=== PATIENT | male | born 1950 | race Caucasian/White ===

== ENCOUNTER 2020-07-26 21:02 | Emergency (ER) | payer SELFPAY ==
[2020-07-26 21:06] VITALS: BP 120/81; PULSE 62; RESP 16; TEMP 37; O2SAT 94; BMI 21.9
[2020-07-26 21:13] VITALS: PULSE 71; O2SAT 100
--- NOTE | 2020-07-26 21:13 | DI.CT.S_ITS ---
PROCEDURE: CT HEAD/BRAIN WO CON INDICATIONS: fall head lac etoh TECHNIQUE: Noncontrast 4.5 mm thick angled axial sections acquired from the foramen magnum to the vertex, with coronal and sagittal reformats. For radiation dose reduction, the following was used: automated exposure control, adjustment of mA and/or kV according to patient size. COMPARISON: None. FINDINGS: Image quality: Excellent. CSF spaces: Basal cisterns are patent. No extra-axial fluid collections. The ventricles are symmetric in size and shape. Brain: No intracranial bleeds or masses. There is cerebral volume loss for age, with resultant ventricular and sulcal prominence. There are periventricular and deep white matter chronic small vessel ischemic changes. There is intracranial internal carotid artery atherosclerosis. Skull and face: Calvarium and visualized facial bones appear intact, without suspicious lesions. Sinuses: Visualized sinuses and mastoids are clear. IMPRESSION: No acute process. Concordant with preliminary interpretation. Dictated by: Lelia Castellano M.D. on 07/27/2020 at 8:05 Approved by: Lelia Castellano M.D. on 07/27/2020 at 8:06
--- NOTE | 2020-07-26 21:13 | DI.CT.S_ITS ---
PROCEDURE: CT CERVICAL SPINE WO CON INDICATIONS: fall TECHNIQUE: Noncontrast 3 mm thick sections acquired from the skull base to the T4 level. Sagittal and coronal reformats were then constructed. For radiation dose reduction, the following was used: automated exposure control, adjustment of mA and/or kV according to patient size. COMPARISON: None. FINDINGS: Image quality: Partially degraded by motion artifact. Bones: No fractures or dislocations. Visualized superior ribs are intact. Multilevel degenerative disc and facet disease. Soft tissues: Prevertebral soft tissues are normal in thickness. No paravertebral hematomas. No apical pneumothoraces. IMPRESSION: No fracture. Concordant with preliminary interpretation. Dictated by: Lelia Castellano M.D. on 07/27/2020 at 8:06 Approved by: Lelia Castellano M.D. on 07/27/2020 at 8:08
--- NOTE | 2020-07-26 21:14 | ED.FALL ---
HPI - Fall General Chief Complaint: Fall Stated Complaint: GLF ETOH Time Seen by Provider: 07/26/20 21:11 Source: patient and EMS Mode of arrival: EMS Limitations: no limitations History of Present Illness HPI Narrative: Patient is a 70-year-old male who presents after ground level fall with laceration to head. He drinks 1 bottle of wine every night and has for a number of years. Tonight he says he got caught up in an area rug and fell and hit his head on a doorjamb. No loss of consciousness he is not on any blood thinners. No neck pain numbness tingling or weakness. Related Data Home Medications Medication Instructions Recorded Confirmed IBUPROFEN (#IBUPAIN-200) 200 mg PO PRN #0 08/04/11 Allergies Allergy/AdvReac Type Severity Reaction Status Date / Time No Known Drug Allergies Allergy Verified 07/26/20 22:52 Review of Systems Review of Systems ROS Unobtainable: All systems reviewed & are unremarkable except as noted in HPI and below Constitutional Constitutional: Denies chills, Denies fever(s), Denies lethargy and Denies weakness Eyes Eyes: Denies change in vision, Denies eye discharge, Denies irritation and Denies loss of vision Cardiovascular Cardiovascular: Denies chest pain, Denies irregular heart rhythm, Denies lightheadedness, Denies palpitations, Denies dyspnea, Denies dyspnea on exertion and Denies orthopnea Respiratory Respiratory: Denies cough, Denies dyspnea, Denies dyspnea on exertion and Denies wheezing Gastrointestinal Gastrointestinal: Denies abdominal pain, Denies change in bowel habits, Denies diarrhea, Denies nausea and Denies vomiting Musculoskeletal Musculoskeletal: Denies myalgias, Denies deformity and Denies joint swelling Integumentary/Breasts Skin/Breast: Reports as per HPI Neurologic Neurologic: Denies loss of vision and Denies weakness Endocrine Endocrine: Denies palpitations Allergic/Immunologic Allergic/Immunologic: Denies wheezing Patient History Medical History Alcoholism alcohol intake frequency: 3 or more drinks per day Alcohol type: wine Substance Use Type: does not use Exam Initial Vital Signs Initial Vital Signs: Vital Signs Temperature 98.6 F 07/26/20 21:06 Pulse Rate 62 07/26/20 21:06 Respiratory Rate 16 07/26/20 21:06 Blood Pressure 120/81 07/26/20 21:06 Pulse Oximetry 94 07/26/20 21:06 GENERAL: Alert appearing 70-year-old male and in no acute distress. HEENT: Head 5 cm laceration at hairline good skin approximation no crepitations or depression,EOMI, pupils reactive, face symmetric, moist mucous membranes NECK: Non tender full range of motion, no step-offs C-collar placed in the emergency department CARDIOVASCULAR: Regular rate and rhythm without murmurs, rubs or gallops. RESPIRATORY: Breath sounds equal bilaterally, no wheezes rales or rhonchi. ABDOMEN: Soft, nontender. Normoactive bowel sounds all 4 quadrants. No guarding or rebound. EXTREMITIES: Normal range of motion, no clubbing or edema. Neurovascularly intact NEUROLOGICAL: Alert and oriented x3.Normal gait and speech. Cranial nerves II through XII grossly intact. 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 SKIN: Large scalp laceration 5 cm as described good skin approximation Procedures Laceration Repair Laceration 1: Site: scalp Size (cm): 5 Description: linear Depth: simple, single layer Local Anesthetic: lidocaine 1% and with epi Amount of anesthesia used (mL): 6 Skin layer closed with: kavita Number of sutures: 8 Scores Nexus Score for C-Spine Focal Neurologic deficit present: No Midline spinal tenderness present: No Altered level of conciousness present: No Intoxication present: Yes Distracting Injury Present: No Nexus Criteria for C-spine: 1 Course Orders Ordered: ED Orders 07/26/20 21:13 CT cervical spine wo con Stat CT head/brain wo con Stat 07/26/20 21:16 Complete Blood Count AUTO DIFF Stat Ethanol (ETOH) Stat Partial Thromboplastin Time Stat Prothrombin Time INR Stat 07/26/20 21:30 Comprehensive Metabolic Panel Stat Troponin & CK Cardiac Panel Stat Discontinued Medications Lidocaine/Epinephrine (Lidocaine 1% W/Epi) 1 ml SUBCUT NOW ONE Stop: 07/26/20 22:40 Last Admin: 07/26/20 22:55 Dose: 1 ml Documented by: YSABEL Vital Signs Vital signs: Vital Signs - 8 hr 07/26/20 22:00 07/26/20 22:01 Pulse Rate 92 H 77 Blood Pressure 123/75 Pulse Oximetry 99 99 MDM - Fall Lab Data Attestation: I reviewed the patient's lab results. Result diagrams: 07/26/20 21:16 07/26/20 21:30 Labs: Lab Results 07/26/20 07/26/20 07/26/20 Range/Units 21:16 21:16 21:16 WBC 6.2 (4.5-11.0) X10^3/uL RBC 4.58 (4.5-5.9) X10^6/uL Hgb 14.8 (13.5-17.5) g/dL Hct 44.7 (41-53) % MCV 97.8 (80-100) fL MCH 32.4 (26-34) PG MCHC 33.2 (30-36) % RDW 13.2 (11.6-14.8) % Plt Count 180 (150-400) X10^3/uL Neut % (Auto) 52.6 (50-75) % Lymph % (Auto) 30.0 (25-40) % Barton % (Auto) 15.1 H (3-14) % Eos % (Auto) 1.4 L (2-4) % Baso % (Auto) 0.9 (0-2) % Neut # (Auto) 3300 (2588-7188) /uL Lymph # (Auto) 1900 (7787-4423) /uL Barton # (Auto) 900 (0-900) /uL Eos # (Auto) 100 (0-450) /uL Baso # (Auto) 100 (0-100) /uL PT 13.2 H (10.1-12.7) SECONDS INR 1.2 (0.9-1.3) APTT 29 (26.4-36.2) SECONDS Sodium Cancelled Potassium Cancelled Chloride Cancelled Carbon Dioxide Cancelled BUN Cancelled Creatinine Cancelled Estimated GFR Cancelled BUN/Creatinine Ratio Cancelled Glucose Cancelled Calcium Cancelled Total Bilirubin Cancelled AST Cancelled ALT Cancelled Alkaline Phosphatase Cancelled Total Creatine Kinase (55-170) U/L CK-MB (CK-2) (<2.37) ng/mL CK-MB (CK-2) Rel Index (1.5-5.0) % Troponin I (0.01-0.034) ng/mL Total Protein Cancelled Albumin Cancelled Globulin Cancelled Albumin/Globulin Ratio Cancelled Ethyl Alcohol 165 H ( - 10) mg/dL 02/27/21 Range/Units 21:30 WBC (4.5-11.0) X10^3/uL RBC (4.5-5.9) X10^6/uL Hgb (13.5-17.5) g/dL Hct (41-53) % MCV (80-100) fL MCH (26-34) PG MCHC (30-36) % RDW (11.6-14.8) % Plt Count (150-400) X10^3/uL Neut % (Auto) (50-75) % Lymph % (Auto) (25-40) % Barton % (Auto) (3-14) % Eos % (Auto) (2-4) % Baso % (Auto) (0-2) % Neut # (Auto) (7954-9074) /uL Lymph # (Auto) (9120-0135) /uL Barton # (Auto) (0-900) /uL Eos # (Auto) (0-450) /uL Baso # (Auto) (0-100) /uL PT (10.1-12.7) SECONDS INR (0.9-1.3) APTT (26.4-36.2) SECONDS Sodium 137 Potassium 4.2 Chloride 104 Carbon Dioxide 27 BUN 31 H Creatinine 1.06 Estimated GFR > 60.0 BUN/Creatinine Ratio 29.2 H Glucose 120 H Calcium 8.4 Total Bilirubin 0.6 AST 48 ALT 30 Alkaline Phosphatase 46 Total Creatine Kinase 198 H (55-170) U/L CK-MB (CK-2) 5.79 H (<2.37) ng/mL CK-MB (CK-2) Rel Index 2.9 (1.5-5.0) % Troponin I < 0.012 (0.01-0.034) ng/mL Total Protein 6.4 Albumin 3.6 Globulin 2.8 Albumin/Globulin Ratio 1.3 Ethyl Alcohol ( - 10) mg/dL Imaging Data CT scan - head: Radiologist's Impression: No significant abnormalities CT - cervical spine: Radiologist's Impression: No acute process MDM Narrative Medical decision making narrative: 9:45 p.m.. Patient is adamantly refusing CT scan stating that only doing it to increases medical bill. He is an alcoholic with a laceration on his head. He has an EtOH of 165. I am not able to clear his Cervical spine due to intoxication. He is also at risk for intracranial hemorrhage based on ETOH and l laceration. Family is at bedside trying to convince him to get the CT scan. He is adamant about not having it. Family and nursing finally convince patient to have CT. His CTs were negative laceration was easily repaired. Discharge Plan Departure Patient Disposition: Home Clinical Impression: Laceration of head Qualifiers: Encounter type: initial encounter Location of open wound of head: scalp Foreign body presence: without foreign body Qualified Code(s): S01.01XA - Laceration without foreign body of scalp, initial encounter Alcohol intoxication Qualifiers: Complication of substance-induced condition: uncomplicated Qualified Code(s): F10.920 - Alcohol use, unspecified with intoxication, uncomplicated Instructions: DI for Laceration Repair -- [place] Activity Restrictions/Additional Instructions: *You have been diagnosed with head laceration and alcohol intoxication *What to do: Kavita need to 3 be removed in about 7 days. Keep area clean and dry with soap and water. Okay to bathe do not cut hair. No soaking in water. You may apply antibiotic ointment 1 to 2 times a day to help healing process *Continue to take medications as directed Tylenol 650 mg every 4-6 hours if needed for [id number] pain *Follow up with your primary care provider in 2-3 days *Return to ER if you should have redness pus swelling, persistent vomiting or any new, worsening or concerning symptoms Prescriptions: No Action IBUPROFEN (#IBUPAIN-200) 200 mg PO PRN Qty: 0 RF: 0 Referrals: Xander Estes MD [Primary Care Provider] -
[2020-07-26 21:23] LABS: Add Manual Diff / Slide Review NO; Basophils Absolute Auto 100 /uL (0-100); Basophils Percent Auto 0.9 % (0-2); Eosinophils Absolute Auto 100 /uL (0-450); Eosinophils Percent Auto 1.4 % (2-4); Hematocrit 44.7 % (41-53); Hemoglobin 14.8 g/dL (13.5-17.5); Lymphocytes Absolute Auto 1900 /uL (1100-4500); Mean Corpuscular HGB Conc 33.2 % (30-36); Mean Corpuscular Hemoglobin 32.4 PG (26-34); Mean Corpuscular Volume 97.8 fL (80-100); Monocytes Absolute Auto 900 /uL (0-900); Monocytes Percent Auto 15.1 % (3-14); Neutrophils Absolute Auto 3300 /uL (1500-7000); Neutrophils Percent Auto 52.6 % (50-75); Platelet Count 180 X10^3/uL (150-400); Red Blood Cell Count 4.58 X10^6/uL (4.5-5.9); Red Cell Distribution Width 13.2 % (11.6-14.8); White Blood Cell Count 6.2 X10^3/uL (4.5-11.0)
[2020-07-26 21:25] LABS: INR 1.2 (0.9-1.3); Prothrombin Time 13.2 SECONDS (10.1-12.7)
--- NOTE | 2020-07-26 21:25 | PC.NURSE ---
Patient refuses cardiac specialist at this time.
[2020-07-26 21:27] LABS: PTT Partial Thromboplastin Tim 29 SECONDS (26.4-36.2)
[2020-07-26 21:30] VITALS: BP 125/75; PULSE 63; O2SAT 99
[2020-07-26 21:30] LABS: Ethanol (ETOH) 165 mg/dL
[2020-07-26 21:51] LABS: Alanine Aminotransferase 30 IU/L (<50); Albumin 3.6 g/dL (3.5-5.0); Albumin Globulin Ratio 1.3 (1.0-2.8); Alkaline Phosphatase 46 U/L (38-126); Aspartate Aminotransferase 48 IU/L (17-59); BUN Creatinine Ratio 29.2 (6-22); Bilirubin Total 0.6 mg/dL (0.2-1.3); Blood Urea Nitrogen 31 mg/dL (9-20); Calcium 8.4 mg/dL (8.4-10.2); Carbon Dioxide 27 mmol/L (22-32); Chloride 104 mmol/L (98-107); Creatine Kinase 198 U/L (55-170); Estimated Glomerular Filt Rate > 60.0 mL/min (>60); Globulin 2.8 g/dL (1.7-4.1); Glucose 120 mg/dL (80-110); HEMOLYSIS 25 (0-50); Potassium 4.2 mmol/L (3.4-5.1); Sodium 137 mmol/L (137-145); Total Protein 6.4 g/dL (6.3-8.2)
[2020-07-26 22:00] VITALS: PULSE 92; O2SAT 99
[2020-07-26 22:01] VITALS: BP 123/75; PULSE 77; O2SAT 99
[2020-07-26 22:02] LABS: Troponin I < 0.012 ng/mL (0.01-0.034)
[2020-07-26 22:06] LABS: CKMB % Relative Index 2.9 % (1.5-5.0); Creatine Kinase MB 5.79 ng/mL (<2.37)
--- NOTE | 2020-07-26 22:16 | PC.NURSE ---
[address] to get [address] scan, is verbally aggressive with staff stating he does not want to pay for it. It was explained to the patient by Dr. Lucio that due to his current level of intoxication he does not have decision-making capacity. Patient continues to escalate angrily. Daughter and at bedside attempting to calm and speak with the patient.
--- NOTE | 2020-07-26 22:18 | PC.NURSE ---
4439 At this time I spoke with the patient and convinced him to calmly receive CT scan.
[2020-07-26] MEDS: LIDOCAINE 1% W/EPI 1 ML SUBCUT (22:55)
--- NOTE | 2020-07-26 23:03 | PC.NURSE ---
PLaced by Dr. Lucio
--- NOTE | 2020-07-26 23:15 | PC.NURSE ---
C-Collar Dc'd with discharge.
== END 2020-07-26 23:14 | disposition home or self-care (01) ==
PROVIDERS: Emergency Provider Emergency Medicine; Family Provider Internal Medicine; PCP Internal Medicine
DX: S01.01XA Laceration without foreign body of scalp, initial encounter (principal); F10.129 Alcohol abuse with intoxication, unspecified; Y90.6 Blood alcohol level of 120-199 mg/100 ml; W19.XXXA Unspecified fall, initial encounter
CPT/HCPCS: 12002; 70450; 72125; 80053; 80320; 82550; 82553; 84484; 85025; 85610; 85730; 99284

== ENCOUNTER 2023-10-27 22:06 | Emergency (ER) | payer SELFPAY ==
[2023-10-27 22:12] VITALS: BP 102/65; PULSE 86; RESP 12; TEMP 35.9; O2SAT 98; BMI 22.8
--- NOTE | 2023-10-27 22:15 | ED.FALL ---
HPI - Fall General Chief Complaint: Syncope Stated Complaint: Fall, Lac, ETOH, Altered Time Seen by Provider: 10/27/23 22:15 Source: EMS Mode of arrival: EMS History of Present Illness HPI Narrative: 73-year-old male with history of alcohol use disorder, AFib not on anticoagulation presents by EMS from home for ground level fall with frontal head injury. Patient states that he had done more yd work than usual and drank a bottle of wine at home, and he thinks he may have over did it. While walking upstairs he stumbled and hit his head against the stairs. Patient states his tetanus shot has been updated within the last 5 years. EMS reports patient had positive orthostatic vital signs on their assessment Related Data Home Medications Medication Instructions Recorded Confirmed IBUPROFEN (#IBUPAIN-200) 200 mg PO PRN ##0 08/04/11 Allergies Allergy/AdvReac Type Severity Reaction Status Date / Time No Known Drug Allergies Allergy Verified 10/27/23 22:15 Review of Systems Review of Systems Narrative: See HPI Patient History Medical History Alcoholism alcohol intake frequency: 3 or more drinks per day Alcohol type: wine Substance Use Type: does not use Exam Initial Vital Signs Initial Vital Signs: Vital Signs Temperature 96.7 F L 10/27/23 22:12 Pulse Rate 86 10/27/23 22:12 Respiratory Rate 12 10/27/23 22:12 Blood Pressure 102/65 10/27/23 22:12 Pulse Oximetry 98 10/27/23 22:12 Oxygen Delivery Method Room Air 10/27/23 22:12 Const: Awake, alert, no acute distress, appears chronically unwell MSK: Atraumatic, full range of motion, pulses equal Skin: Warm, Dry, 2 cm horizontal laceration top of scalp near hairline Neuro: AO x3, CN II-XII grossly intact, moves all extremities Procedures Laceration Repair Laceration 1: Site: scalp Size (cm): 2 Description: linear Depth: simple, single layer Local Anesthetic: other anesthetic (lidocaine-prilocaine) Pre-repair: wound explored and irrigated extensively Skin layer closed with: other (Dennis) Number of sutures: 4 Course Orders Ordered: ED Orders 10/27/23 22:15 CT cervical spine wo con Stat CT head/brain wo con Stat Discontinued Medications Lidocaine/Prilocaine (Lidocaine/Prilocaine 5 Gm) 5 gm TOP NOW ONE Stop: 10/27/23 22:31 Last Admin: 10/27/23 23:06 Dose: 5 gm Documented By: DAMIAN Vital Signs Vital signs: Vital Signs - 8 hr 10/27/23 22:31 10/27/23 22:56 10/27/23 22:56 Pulse Rate 85 82 Respiratory Rate 22 24 Blood Pressure 97/57 L Pulse Oximetry 91 93 10/27/23 23:00 10/27/23 23:30 10/28/23 00:02 Pulse Rate 86 89 100 H Respiratory Rate 26 H 31 H Blood Pressure Pulse Oximetry 98 96 90 L 10/28/23 00:08 10/28/23 00:08 Pulse Rate 91 H Respiratory Rate 18 Blood Pressure 113/68 Pulse Oximetry 98 MDM - Fall Differential Diagnosis Differential diagnosis: Likely syncope, concussion with loss of consciousness and concussion without loss of consciousness Lab Data Labs: Point of Care Testing Glucose POC [address] - cervical spine: Radiologist's Impression: PROCEDURE: CT CERVICAL SPINE WO CON INDICATIONS: GLF, HEAD INJ, ETOH TECHNIQUE: Noncontrast 3 mm thick sections acquired from the skull base to the T4 level. Sagittal and coronal reformats were then constructed. For radiation dose reduction, the following was used: automated exposure control, adjustment of mA and/or kV according to patient size. COMPARISON: [facility], CT, CT CERVICAL SPINE WO CON, 07/26/2020, 21:15. FINDINGS: Image quality: Excellent. Bones: No fractures or dislocations. Loss of disc height, degenerative endplate changes, vacuum disc phenomenon and bilateral uncovertebral hypertrophic changes are noted throughout cervical spine. Mild dorsal disc osteophyte complex formation throughout cervical spine is also seen causing [id number] central canal stenosis and bilateral neural foraminal narrowing more notably at C5-6 level. Visualized superior ribs are intact. Soft tissues: Prevertebral soft tissues are normal in thickness. No paravertebral hematomas. No apical pneumothoraces. IMPRESSION: 1. No displaced fracture or traumatic subluxation. 2. Degenerative disc disease throughout cervical spine as above. Dictated by: Ricardo Venegas M.D. on 10/27/2023 at 22:43 Approved by: Ricardo Venegas M.D. on 10/27/2023 at 22:44 CT scan - head: Radiologist's Impression: PROCEDURE: CT HEAD/BRAIN WO CON INDICATIONS: GLF, HEAD INJ, ETOH TECHNIQUE: Noncontrast 4.5 mm thick angled axial sections acquired from the foramen magnum to the vertex, with coronal and sagittal reformats. For radiation dose reduction, the following was used: automated exposure control, adjustment of mA and/or kV according to patient size. COMPARISON: [facility], CT, CT HEAD/BRAIN WO CON, 07/26/2020, 21:15. FINDINGS: Image quality: Diagnostic. CSF spaces: Basal cisterns are patent. No extra-axial fluid collections. The ventricles are symmetric in size and shape. Brain: No intracranial bleeds or masses. There is cerebral volume loss for age, with resultant ventricular and sulcal prominence. There are periventricular and deep white matter chronic small vessel ischemic changes. There is intracranial internal carotid artery atherosclerosis. Skull and face: Calvarium and visualized facial bones appear intact, without suspicious lesions. Sinuses: Visualized sinuses and mastoids are clear. IMPRESSION: No acute intracranial pathology. No gross acute skull fracture. Dictated by: Ricardo Venegas M.D. on 10/27/2023 at 22:36 Approved by: Ricardo Venegas M.D. on 10/27/2023 at 22:37 MDM Narrative Medical decision making narrative: Ground level fall with head injury after over exerting himself in the yd and drinking bottle of wine. No other injuries on physical exam. CT brain and C-spine negative for acute traumatic findings. Wound closed with kavita per procedure note. After receiving IV fluids patient reported feeling ?back to normal? and requested to go home. He was ambulatory around the emergency department without any difficulty. Wound care instructions and staple removal instructions discussed with patient and family at bedside. Discharge Plan Departure Patient Disposition: Home Clinical Impression: Forehead laceration Instructions: DI for Laceration Repair -- Kavita Activity Restrictions/Additional Instructions: Keep your kavita clean and dry. If you shower do not scrub the sutures and pat them dry. They will need to be removed in 10 days. Prescriptions: No Action IBUPROFEN (#IBUPAIN-200) 200 mg PO PRN Qty: 0 Referrals: Xander Estes MD [Primary Care Provider] - Stand Alone Forms: Patient Portal/API
--- NOTE | 2023-10-27 22:16 | PC.NURSE ---
Patient reports feeling fine all day. Walking up the stairs family heard patient fall. Patient has had 1/2-1 bottle of wine today which is patient's normal consumption. Patient does not recall event, does not report any pain. Patient has afib, not anticoagulated. Denies neck pain. GCS 14
--- NOTE | 2023-10-27 22:22 | PC.NURSE ---
avelino upon arrival to ER. Denies chest pain or SOB, denies dizziness. No complaints at this time
[2023-10-27 22:31] VITALS: PULSE 85; RESP 22; O2SAT 91
[2023-10-27 22:56] VITALS: BP 97/57; PULSE 82; RESP 24; O2SAT 93
[2023-10-27 23:00] VITALS: PULSE 86; O2SAT 98
[2023-10-27] MEDS: LIDOCAINE/PRILOCAINE 5 GM TOP (23:06)
[2023-10-27 23:30] VITALS: PULSE 89; RESP 26; O2SAT 96
[2023-10-28 00:02] VITALS: PULSE 100; RESP 31; O2SAT 90
[2023-10-28 00:08] VITALS: BP 113/68; PULSE 91; RESP 18; O2SAT 98
== END 2023-10-28 00:17 | disposition home or self-care (01) ==
PROVIDERS: Emergency Provider Emergency Medicine; Family Provider Internal Medicine; PCP Internal Medicine
DX: S01.81XA Laceration without foreign body of other part of head, initial encounter (principal); W10.9XXA Fall (on) (from) unspecified stairs and steps, initial encounter
CPT/HCPCS: 12011; 70450; 72125; 93005; 99282; 99283

== ENCOUNTER 2024-04-09 20:28 | Emergency (ER) | payer SELFPAY ==
[2024-04-09] VITALS (9 sets, daily range): BP systolic 122–163; BP diastolic 77–90; PULSE 64–114; RESP 14–20; TEMP 36.5; O2SAT 95–97; BMI 24.2
--- NOTE | 2024-04-09 20:37 | ED_ITS ---
HPI - Trauma General Chief Complaint: Trauma Stated Complaint: GLF/ 10 stairs Time Seen by Provider: 04/09/24 20:33 History of Present Illness HPI narrative: patient is a 73-year-old male no significant past medical history presents for evaluation of fall. He states he was going up the steps are proximally 10 states that he fell and passed out. Was able to stand bear weight ambulate immediately after, does have a slight abrasion noted in the posterior left part of his head, not on any blood thinners, not complaining of any other injuries or symptoms at this time. Modified trauma was called immediately upon arrival here in the emergency department. patient without any focal deficits moving all 4 extremities does have C-collar in place for precautions. Related Data Home Medications Medication Instructions Recorded Confirmed IBUPROFEN (#IBUPAIN-200) 200 mg PO PRN ##0 08/04/11 Allergies Allergy/AdvReac Type Severity Reaction Status Date / Time No Known Drug Allergies Allergy Verified 10/27/23 22:15 Review of Systems Review of Systems Narrative: General: Denies fever, chills, weight loss HEENT: Positive headache, denieseye drainage, eye irritation, head trauma, sore throat, voice change Cardiovascular: Denies any chest pain, palpitations, shortness of breath, tac hycardia Respiratory: Denies any shortness of breath, cough, wheeze, stridor GI/: Denies any abdominal pain, nausea, vomiting, diarrhea, bright red blood per rectum, melanotic stools, urinary frequency, urinary retention, dysuria, hematuria MSK: Denies any joint pain, muscle pains, swelling Skin: Denies any rashes, lesions, discoloration Neuro: Denies any headache, lightheadedness, dizziness, fainting, weakness Psych: Denies SI/HI Patient History Medical History Alcoholism alcohol intake frequency: 3 or more drinks per day Alcohol type: wine Substance Use Type: does not use Exam Narrative Exam Narrative: General: Cooperative, comfortable, well-developed, not in acute distress HEENT:7cm laceration noted to the posterior aspect of the head, not actively bleeding, PERRLA, normal sclera, eyelids normal, Neck: Active full range of motion, atraumatic Chest: Normal to inspection, negative crepitus, no overlying erythema ecchymosis Respiratory: Normal respiratory effort, not in acute respiratory distress, clear to auscultation bilaterally negative cough, wheeze, tachypnea, rhonchi, rales Cardiology: irregularly irregular rate rhythm negative gallop, murmur, rubs GI/: Normal to inspection, soft, nonrigid, no tenderness to palpation, exam deferred MSK: Full range of active range of motion of all 4 extremities, atraumatic no other tenderness to palpation of any other bony prominences, able to move all 4 extremities spontaneously. Skin: No rashes lesions noted Neuro: Alert awake oriented x3, moves all 4 extremities spontaneously, cranial nerves intact, able to answer all questions appropriately follows commands appropriately Psych: Cooperative, negative suicidal or homicidal ideations Initial Vital Signs Initial Vital Signs: Vital Signs Pulse Rate 64 04/09/24 20:29 Respiratory Rate 19 04/09/24 20:29 Blood Pressure 129/88 04/09/24 20:29 Pulse Oximetry 97 04/09/24 20:29 Oxygen Delivery Method Room Air 04/09/24 20:29 Procedures Laceration Repair Laceration 1: Time of procedure: 22:40 Site: scalp Size (cm): 7 Description: linear Depth: simple, single layer Local Anesthetic: lidocaine 2% and with epi Amount of anesthesia used (mL): 10 Skin layer closed with: melissa (7) Course Orders Ordered: ED Orders 04/09/24 20:35 CT cervical spine wo con Stat 04/09/24 20:36 CT head/brain wo con Stat 04/09/24 20:40 EKG-12 Lead Stat 04/09/24 21:36 CT chest abd pel wo con Stat 04/09/24 22:14 EKG-12 Lead Stat Discontinued Medications Diphtheria/Tetanus/Acell Pertussis (Tet,Diph,Pertuss(Acell),Vac/Pf 0.5 Ml Syringe) 0.5 ml IM .ONCE ONE Stop: 04/09/24 20:37 Last Admin: 04/09/24 20:40 Dose: 0.5 ml Documented By: COREY Vital Signs Vital signs: Vital Signs - 8 hr 04/09/24 20:29 04/09/24 20:29 04/09/24 20:30 Temperature Pulse Rate 64 72 Respiratory Rate 19 Blood Pressure 129/88 Pulse Oximetry 97 97 Oxygen Delivery Method Room Air Room Air 04/09/24 20:34 04/09/24 20:52 04/09/24 20:52 Temperature 97.7 F Pulse Rate 78 68 Respiratory Rate 14 19 Blood Pressure 129/88 134/83 Pulse Oximetry 97 95 Oxygen Delivery Method Room Air Room Air 04/09/24 21:00 04/09/24 21:00 04/09/24 21:30 Temperature Pulse Rate 79 80 Respiratory Rate 20 19 Blood Pressure 122/79 Pulse Oximetry 96 96 Oxygen Delivery Method Room Air Room Air 04/09/24 21:30 Temperature Pulse Rate Respiratory Rate Blood Pressure 131/77 Pulse Oximetry Oxygen Delivery Method MDM - Trauma Differential Diagnosis Differential diagnosis: Likely other ( Closed-head injury, intracranial hemorrhage, cervical neck fracture, rib fracture, pneumothorax, AFib) Imaging Data CT scan - head: Radiologist's Impression: [address] [address] [address] Scan Report Signed Patient: Jose Martin Lopez MR#: [id number] : 1950 Acct:[id number] Age/Sex: 73 / M Date of Service: 04/09/24 Loc: ED Accession Number: [id number] Procedure: CT head/brain wo con Ordering Provider: Jean Carlos Vu D.O. PROCEDURE: CT HEAD/BRAIN WO CON INDICATIONS: Trauma TECHNIQUE: Noncontrast 4.5 mm thick angled axial sections acquired from the foramen magnum to the vertex, with coronal and sagittal reformats. For radiation dose reduction, the following was used: automated exposure control, adjustment of mA and/or kV according to patient size. COMPARISON: [facility], CT, CT HEAD/BRAIN WO CON, 10/27/2023, 22:22. [facility], CT, CT HEAD/BRAIN WO CON, 07/26/2020, 21:15. FINDINGS: Image quality: Diagnostic. CSF spaces: Basal cisterns are patent. No extra-axial fluid collections. The ventricles are symmetric in size and shape. Brain: No acute intracranial hemorrhage or mass effect. There is cerebral volume loss for age, with resultant ventricular and sulcal prominence. There are periventricular and deep white matter chronic small vessel ischemic changes. There is intracranial internal carotid artery atherosclerosis. Skull and face: Calvarium and visualized facial bones appear intact, without suspicious lesions. Sinuses: Visualized sinuses and mastoids are clear. IMPRESSION: No acute intracranial pathology. CT - cervical spine: Radiologist's Impression: [address] [address] [address] Scan Report Signed Patient: Jose Martin Lopez MR#: [id number] : 1950 Acct:[id number] Age/Sex: 73 / M Date of Service: 04/09/24 Loc: ED Accession Number: [id number] Procedure: CT cervical spine wo con Ordering Provider: Jean Carlos Vu D.O. PROCEDURE: CT CERVICAL SPINE WO CON INDICATIONS: trauma TECHNIQUE: Noncontrast 3 mm thick sections acquired from the skull base to the T4 level. Sagittal and coronal reformats were then constructed. For radiation dose reduction, the following was used: automated exposure control, adjustment of mA and/or kV according to patient size. COMPARISON: [facility], CT, CT CERVICAL SPINE WO CON, 10/27/2023, 22:22. [facility], CT, CT CERVICAL SPINE WO CON, 07/26/2020, 21:15. FINDINGS: Image quality: Excellent. Bones: No acute fractures or dislocations. Visualized portions of the superior ribs are grossly intact given respiratory motion. Soft tissues: Prevertebral soft tissues are normal in thickness. No paravertebral hematomas. Small left apical pneumothorax. IMPRESSION: 1. No acute displaced cervical spine fracture or traumatic subluxation. 2. Small left apical pneumothorax. Recommend imaging of the chest to evaluate for a possible displaced rib fracture. ECG Data Interpretation: EKG interpreted ED physician atrial fibrillation at 86 beats per minute QTC 454, normal axis, nonspecific ST changes, no STEMI MDM Narrative Medical decision making narrative: Patient is a 73-year-old male with past medical history of AFib not on anticoagulation due to the fact that he does not believe he needs this, presents to the emergency department with EMS for evaluation of fall. He states that it was a mechanical trip and fall, he states he was going up the stairs lost his step and fell down, did lose consciousness. Only complaining of pain to the back of his head currently not complaining of any other symptoms. At time of initial evaluation patient is with irregularly irregular cardiac exam, he does have a send been cm linear laceration to the posterior aspect of his head not actively bleeding. CT scan of the head without any acute intracranial hemorrhage, CT cervical spine did note small left apical pneumothorax, did order CT chest abdomen and pelvis, however when I went to re-evaluate the patient to inform him that we will need additional lab work repeat EKG he was only agre ement to repeat imaging, after imaging was obtained he states that he does not want to wait for the results, informed him that we would need more lab work and the complete results of the CT chest abdomen pelvis. I informed him that he may have actually syncopized due to his AFib, that he needs to be admitted and evaluated and possibly transferred for his symptoms. He states that he feels fine and does not want this to be done he states that he just wants his laceration on his head to be fixed. I did place 7 melissa to this and instructed him that he needs to follow up to get these removed. I did tell him /pleated for him to let us obtain additional imaging as well as for him to await the official results of his CT scan results, he states that he feels well and does not want to stay regardless of what they say. I informed him that he should at least follow up with Cardiology in outpatient setting, he verbalized understanding of this, I informed him that his decision would be leaving against medical advice he verbalized understanding of this. He does have family member at bedside. Discharge Plan Departure Patient Disposition: Left Against Medical Advice Clinical Impression: Left against medical advice, Laceration of scalp, Pneumothorax, Syncope and collapse, Atrial fibrillation Activity Restrictions/Additional Instructions: please follow up with Cardiology and primary care We have discussed and explained the clinical examination, laboratory results, and imaging studies so far with the patient, both with full medical disclosure and layman's terms. The patient is an adult and is of sound mind. The patient appears to have intact insight, judgement and reason. Is alert and oriented x4. The patient is clinically sober and appears free from any distracting injury. The patient verbalized understanding. Despite incomplete workup the patient expresses a wish to leave. We have explained to the patient that leaving now would be leaving against medical advice. We have explained that leaving against medical advice without a complete workup and/or identification of pathology may lead to worsening of symptoms and even the possibility of disability or . The patient understands that the only way to safely avoid this is to complete the workup as leaving the grounds of the hospital would be leaving the care of trained medical staff services coordinator, specialists, and resources that were available to the patient. We have expressed the need for the patient to stay in the hospital, considering the constellation of symptoms of breath the patient here. Despite this lengthy conversation the patient still expresses desire to leave against medical advice and demonstrates a full capacity to make their own medical decisions. We have informed the patient to call 911 or to seek immediate medical attention at their nearest emergency department if there are symptoms were to worsen/or change their mind. Prescriptions: No Action IBUPROFEN (#IBUPAIN-200) 200 mg PO PRN Qty: 0 Referrals: Xander Estes MD [Primary Care Provider] - Stand Alone Forms: Patient Portal/API, Against Medical Advice
[2024-04-09] MEDS: TET,DIPH,PERTUSS(ACELL),VAC/PF 0.5 ML SYRINGE IM (20:40)
--- NOTE | 2024-04-09 21:07 | EKG_ITS ---
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
--- NOTE | 2024-04-09 21:36 | DI.CT.S_ITS ---
PROCEDURE: CT CHEST ABD PEL WO CON INDICATIONS: trauma TECHNIQUE: After the administration of oral contrast, 5 mm thick sections acquired from the lung apices to the symphysis pubis. 5 mm thick coronal and sagittal reformats acquired, with additional 7 mm coronal MIP reformats through the lungs. For radiation dose reduction, the following was used: automated exposure control, adjustment of mA and/or kV according to patient size. COMPARISON: None. FINDINGS: Image quality: Diagnostic. CHEST: Lower Neck: No enlarged lymph nodes. Thyroid: No thyroid nodules which require sonographic follow up, per consensus guidelines. Axillae: No enlarged lymph nodes. Chest Wall: Mild soft tissue emphysema is seen in the left chest wall adjacent to the 9th rib fracture. Lungs and Pleura: Trace left pneumothorax. No significant pleural effusion. No pulmonary contusion or laceration. Mild dependent atelectasis. Heart: Heart size is moderately enlarged. No pericardial effusion. Thoracic Vessels: The aorta and pulmonary arteries demonstrate normal size. Mediastinum and Jolie: No enlarged lymph nodes. Esophagus: No wall thickening. No hiatal hernia. ABDOMEN: Liver: No solid mass. Gallbladder: No radiopaque gallstones or wall thickening. Biliary ducts: No biliary dilation. Pancreas: No ductal dilation. Spleen: Size is within normal limits. Adrenal Glands: No adrenal nodules. Kidneys and Ureters: No hydronephrosis. No solid mass. No complex renal cystic lesion which requires follow up. Stomach and Bowel: Large amount of food material is seen in the stomach. Colonic diverticulosis. Moderate colonic stool. No signs of bowel obstruction. Peritoneum: No abnormal intraperitoneal fluid. No free air. Ventral Wall: No hernia. Abdominal Nodes: No retroperitoneal or mesenteric adenopathy by size criteria. Vessels: Aorta and inferior vena cava are normal in size. PELVIS: Pelvic Organs: Coarse calcifications are seen in the prostate. Bladder: Unremarkable. Pelvic Nodes: No enlarged lymph nodes. Miscellaneous: No inguinal hernias are seen. Bones: Multilevel degenerative changes in the included spine. Minimally displaced fracture of the posterolateral left 9th rib. Mild T12 vertebral body compression fracture with focal kyphosis, age indeterminate but favored to be chronic. No adjacent soft tissue edema is seen. Multilevel degenerative changes throughout the lumbar spine. IMPRESSION: 1. Minimally displaced fracture of the posterolateral left 9th rib. Mild adjacent edema and trace subcutaneous emphysema. 2. Trace left pneumothorax. No pleural effusion. 3. Mild T12 compression fracture is of uncertain age, but is favored to be chronic. Recommend correlation for point tenderness. 4. Moderate cardiomegaly. 5. Colonic diverticulosis. Approved by: Deven Knight M.D. on 04/09/2024 at 23:00
--- NOTE | 2024-04-09 22:30 | PC.NURSE ---
Cleansed posterior head lac with normal saline, dressed with gauze pads.
--- NOTE | 2024-04-10 09:32 | PC.NURSE ---
Called pt to check on him this morning after leaving AMA last evening. He states he is doing well. Denies shortness of breath, dizziness, syncope. Does c/o left chest pain. Reviewed findings from previous evening. Reviewed d/c instructions. Encouraged to have a low threshold from return. Pt verbalized understanding and thanked me for phone call.
== END 2024-04-09 22:55 | disposition left against medical advice (07) ==
PROVIDERS: Emergency Provider Student in an Organized Health Care Education/Training Program; Family Provider Internal Medicine; PCP Internal Medicine
DX: S01.01XA Laceration without foreign body of scalp, initial encounter (principal); R55 Syncope and collapse; S27.0XXA Traumatic pneumothorax, initial encounter; I48.91 Unspecified atrial fibrillation; W10.8XXA Fall (on) (from) other stairs and steps, initial encounter; Z53.29 Procedure and treatment not carried out because of patient's decision for other reasons; Z23 Encounter for immunization
CPT/HCPCS: 12002; 70450; 71250; 72125; 74176; 90471; 93005; 93010; 99284; 99285; 90715